=== PATIENT | male | born 1940 | race Caucasian/White ===

== ENCOUNTER 2024-09-27 02:03 | Day surgery (SDC) | payer MEDICARE, SELFPAY ==
[2024-09-18 14:29] VITALS: BMI 20.9
[2024-09-27 09:09] VITALS: BP 93/50; PULSE 95; RESP 22; TEMP 36.5; O2SAT 98; BMI 20.4
[2024-09-27] MEDS: LACTATED RINGERS 1,000 ML 150 ML IV CONT (09:13)
--- NOTE | 2024-09-27 09:19 | P.PNAN_ITS ---
Anes - Initial Pre Proc Eval Procedure: Operation Date: 09/27/24 10:00 Proposed Procedures p Esophagogastroduodenoscopy & Colonoscopy - Teodoro Mckay MD Date/Time: 09/27/24 09:19 Surgeon: Teodoro Mckay MD Pre Op Diagnosis: anemia Patient Data Age: 84 Gender: M Height: 1.88 m Weight: 72.2 kg Last Vital Signs Temp 97.7 F 09/27/24 09:09 Pulse 95 09/27/24 09:09 Resp 22 H 09/27/24 09:09 BP 93/50 L 09/27/24 09:09 Pulse Ox 98 09/27/24 09:09 O2 Del Method Room Air 09/27/24 09:09 Allergies Allergy/AdvReac Type Severity Reaction Status Date / Time No Known Allergies Allergy Verified 09/27/24 09:07 Home Medications Medication Instructions Recorded Confirmed Type atorvastatin 20 mg tablet 10 mg PO DAILY 09/18/24 09/27/24 History divalproex 500 mg tablet,extended 500 mg PO DAILY 09/18/24 09/27/24 History release 24 hr escitalopram oxalate 5 mg tablet 5 mg PO DAILY 09/18/24 09/27/24 History finasteride 5 mg tablet 5 mg PO HS 09/18/24 09/27/24 History ipratropium bromide 21 mcg (0.03 1 spray intranasal DAILY PRN 09/18/24 09/27/24 History %) nasal spray congestions levothyroxine 100 mcg tablet 88 mcg PO DAILY 09/18/24 09/27/24 History midodrine 5 mg tablet 5 mg PO TID 09/18/24 09/27/24 History Patient hx anesthesia problems: none Family hx anesthesia problems: none Results Review: All pre-operative results and documents have been reviewed as part of the pre- operative evaluation. [facility] Social History Social History Smokeless tobacco user: chewing tobacco Substance use type: does not use Living arrangements: alone Anes - Eval Final PreProcedure Day of Procedure 09/27/24 09:19 Patient weight: normal and thin Heart: regular rate and rhythm Lungs: clear to auscultation Airway: Mallampati scale and special considerations (Lower R tooth broken. ) Neurological: alert and oriented Last oral intake: >/= 8 hours ASA classification: IV Emergent: no Anesthetic plan: proceed Anesthesia type and monitoring: general GIVS and standard monitoring Results Review: All pre-operative results and documents have been reviewed as part of the pre- operative evaluation. Now for anemia and wt loss. 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 ALIRIO no CPAP. Pacemaker. Will send H and H stat preop. Informed Consent: The patient's anesthetic plan and its attendant risks and benefits were discussed with the patient/family/POA. Questions were solicited and answers provided to the satisfaction of the patient/family/POA.
[2024-09-27 09:28] LABS: Hematocrit 28.8 % (42.0-52.0); Hemoglobin 9.3 g/dL (14.0-18.0)
--- NOTE | 2024-09-27 09:37 | PM.HPGS ---
History of Present Illness History of Present Illness Consent: Risks, benefits, and alternatives have been discussed and questions answered. Patient agrees to proceed with procedure. Chief complaint: anemia Narrative: Atul Dimas is a 84 year old male here for egd and colonscopy (had one years ago), with anemia but no overt gib, also weight loss with post prandial loose stools. Review of Systems Review of Systems: All systems reviewed & are unremarkable except as noted in HPI and below PMFSH Past Medical History Medical History (Updated 09/27/24 @ 09:38 by Teodoro Mckay MD) Anemia Weight loss Social History Social History Smokeless tobacco user: chewing tobacco Substance use type: does not use Living arrangements: alone Meds Home Medications and Allergies Home Medications Medication Instructions Recorded Confirmed Type atorvastatin 20 mg tablet 10 mg PO DAILY 09/18/24 09/27/24 History divalproex 500 mg tablet,extended 500 mg PO DAILY 09/18/24 09/27/24 History release 24 hr escitalopram oxalate 5 mg tablet 5 mg PO DAILY 09/18/24 09/27/24 History finasteride 5 mg tablet 5 mg PO HS 09/18/24 09/27/24 History ipratropium bromide 21 mcg (0.03 1 spray intranasal DAILY PRN 09/18/24 09/27/24 History %) nasal spray congestions levothyroxine 100 mcg tablet 88 mcg PO DAILY 09/18/24 09/27/24 History midodrine 5 mg tablet 5 mg PO TID 09/18/24 09/27/24 History Allergies Allergy/AdvReac Type Severity Reaction Status Date / Time No Known Allergies Allergy Verified 09/27/24 09:07 Vital Signs Vital Signs - 24 hr 09/27/24 09:09 Temperature 97.7 F Pulse Rate 95 Respiratory Rate 22 H Blood Pressure 93/50 L Pulse Oximetry 98 Oxygen Delivery Room Air Exam Const: General: comfortable and no acute distress HENMT: Face/Nose/Sinus: Normal nares present Eyes: General: appearance normal, both eyes and all related structures Neck: Neck: no JVD Resp: Auscultation: clear to auscultation bilaterally Cardio: Rate: regular rate Rhythm: regular rhythm GI: Inspection: non-distended GI Palp: Yes Soft to palpation Skin: General skin exam: normal color Neuro: General: gait normal Speech: normal speech Extrem: General: normal to inspection Psych: Mental Status: mental status grossly normal Assessment and Plan Assessment and plan (1) Anemia: Code(s): D64.9 - Anemia, unspecified Status: Acute Assessment and Plan: egd and colonoscopy (2) Weight loss: Code(s): R63.4 - Abnormal weight loss Status: Acute
--- NOTE | 2024-09-27 09:52 | SUR.OPER ---
EGD end 951 COLONOSCOPY START 955
[2024-09-27 10:12] VITALS: BP 101/66; PULSE 95; RESP 18; O2SAT 100
[2024-09-27 10:22] VITALS: BP 100/66; PULSE 91; RESP 18; O2SAT 100
[2024-09-27 10:32] VITALS: BP 100/68; PULSE 97; RESP 16; O2SAT 100
== END 2024-09-27 10:50 | disposition home or self-care (01) ==
PROVIDERS: Anesthesiology; PCP Internal Medicine; Visit Provider Internal Medicine Gastroenterology
PROC: 0DJ08ZZ Inspection of Upper Intestinal Tract, Via Natural or Artificial Opening Endoscopic (ICD-10-PCS; CPT 43235; principal; 2024-09-27 10:00)
DX: D64.9 Anemia, unspecified (principal); D12.5 Benign neoplasm of sigmoid colon; K64.8 Other hemorrhoids; K57.30 Diverticulosis of large intestine without perforation or abscess without bleeding; F17.220 Nicotine dependence, chewing tobacco, uncomplicated
CPT/HCPCS: 43239; 45385; 45380; 36415; 85014; 85018; 88305; J7120

== ENCOUNTER 2025-01-10 08:35 | Outpatient (CLI) | payer MEDICARE, SELFPAY ==
--- NOTE | ~2025-01-10 | US_ITS ---
US abdomen complete EXAMINATION: US Abdomen Complete INDICATION: Abnormal weight loss PROCEDURE: Realtime High Resolution abdomen ultrasound. COMPARISON: No prior studies for comparison. FINDINGS: There are gallstones. No gallbladder wall thickening or pericholecystic fluid. Common bile duct measures 3 mm. Liver echotexture within normal limits without focal mass. Pancreas within normal limits. Pancreati c tail is obscured by bowel gas. Spleen is unremarkeable. Renal echotexture is within normal limits bilaterally without hydronephrosis, contour deforming mass. There are nonobstructing left renal stone s.. Right kidney measures 11.6 cm. Left kidney measures 10.7 cm. Visualized aspects of the aorta and IVC are within normal limits. Portal vein is patent. No sonograph ic Merritt's sign indicated by the technologist. IMPRESSION: 1: Cholelithiasis. 2: Left nephrolithiasis. Reviewed, dictated and finalized at location B.
--- NOTE | ~2025-01-10 | CT_ITS ---
CT of the Abdomen and Pelvis: Indication: Abnormal weight loss Technique: 2.5 mm axial scans were obtained through the abdomen and pelvis following intravenous adm inistration of 100 cc of Omnipaque 350. Dose reduction technique was used on this scan by utilizing a utomated exposure control and iterative reconstruction technique. The dose-length product (DLP) was 3 30.46 mGy-cm. Findings: Scans through the lung bases are unremarkable. The liver, spleen, pancreas, gallbladder, and adrenal glands are within normal limits. Small bilatera l nonobstructing renal stones are present. There is 3.9 cm infrarenal abdominal aortic aneurysm with aortic stent graft in place extending into the common iliac arteries.. No lymphadenopathy. No bowel obstruction or bowel wall thickening. There is no evidence to suggest acute appendicitis. Images through the pelvis were performed. Urinary bladder unremarkable. Prostate gland enlarged. No a scites. Impression: No evidence of malignancy or metastatic disease. Small bilateral nonobstructing renal stones. Aortic aneurysm with stent graft in place. Enlarged prostate gland. Reviewed, dictated and finalized at location . Impression: No evidence of malignancy or metastatic disease. Small bilateral nonobstructing renal stones. Aortic aneurysm with stent graft in place. Enlarged prostate gland.
[2025-01-10 10:37] LABS: Estimated Glomerular Filt Rate 45
== END 2025-01-10 08:36 | disposition home or self-care (01) ==
LOC: ANHIMG 08:37
PROVIDERS: PCP Internal Medicine; Visit Provider Internal Medicine Gastroenterology
DX: R63.4 Abnormal weight loss (principal); D64.9 Anemia, unspecified
CPT/HCPCS: 74177; 76700; Q9967